=== PATIENT | female | born 1980 | race Caucasian/White ===

== ENCOUNTER → 2025-07-16 | Outpatient (CLI) | payer OTHER, SELFPAY ==
--- NOTE | 2025-07-16 11:54 | CT_ITS ---
PROCEDURE: ABDOMEN/PELVIS WITHOUT CONT 07/16/2025 REASON FOR EXAM: CALCULUS OF URETER. TECHNIQUE: Procedure Code: CTABDPEL Modality: CT Procedure: ABDOMEN/PELVIS WITHOUT CONT Noncontrast technique limits evaluation of the abdominal and pelvic viscera. Coronal and Sagittal reconstruction series were provided. One or more dose reduction techniques were used (e.g., Automated exposure control, adjustment of the mA and/or kV according to patient size, use of iterative reconstruction technique). RADIATION DOSE SUMMARY: CTDlvol: 7.09 mGy DLP: 357 mGycm COMPARISON: None FINDINGS: Lung bas the lungs are clear es: . No focal consolidation. Liver: Unenhanced appearance of the liver is unremarkable. Gallbladder: Normal Spleen: Normal Pancreas: Normal Adrenals: Normal Kidneys: 2 mm stone in the lower pole of the left kidney. Mild left hydronephrosis. Multiple phleboliths seen in the pelvis. There is a suspicious 4-5 mm calcification along the course of the left ureter which is concerning for distal ureteral calculus. No hydronephrosis. Bladder: Normal bladder Reproductive Organs: IUD in place. No adnexal mass. Bowel: Normal. No obstruction. Moderate amount of stool in the colon. Appendix: Normal Lymph nodes: No lymphadenopathy. Vasculature: Atherosclerosis. No aneurysm. Peritoneum / Retroperitoneum: No ascites. Bones: Osseous structures are normal. No soft tissue abnormality. CT/Abdomen/Pelvis without Cont IMPRESSION: Question 4 mm stones suspected in the distal left ureter with mild left hydrour eter and hydronephrosis. 2 mm nonobstructing stone in the left kidney. Reading Location: [facility]
== END | disposition home or self-care (01) ==
PROVIDERS: Referring Provider Urology; Visit Provider Urology
DX: N20.1 Calculus of ureter (principal)
CPT/HCPCS: 74176